=== PATIENT | female | born 1940 | race Caucasian/White ===

== ENCOUNTER 2016-10-14 21:15 | Inpatient (IN) | payer OTHER ==
--- NOTE | ~2016-10-14 | OP ---
Record Of Operation [facility] [address] [place]. [address] NAME: JOBY TREVINO : 39 STATUS : ADM IN PAT#: [id number] AGE: 76 ADM/REG DATE : 10/14/16 MR#: [id number] REPORT SERV DATE: 10/15/16 DICTATED BY: COLE LAURENT DATE: 10/15/16 REPORT STATUS : Draft TRANSCRIBED BY: MODL DATE: 10/15/16 DATE OF PROCEDURE: 10/15/2016 PREOPERATIVE DIAGNOSIS: Bilateral hydronephrosis. POSTOPERATIVE DIAGNOSIS: Bilateral hydronephrosis, right mid ureteral calculus, bilateral pyelonephritis. PROCEDURES: Cystoscopy, bilateral retrograde pyelogram, and bilateral ureteral stent placement. SURGEON: Cole Laurent M.D. ANESTHESIA: General laryngeal mask airway. BLOOD LOSS: None. DRAINS: 6-Libyan 24 cm left ureteral stent. 6-Libyan 24 cm right ureteral stent. All strings removed and a 16-Libyan Laurent catheter per urethra. SPECIMENS: Urine from right renal pelvis for culture and sensitivity. TECHNIQUE: The patient was identified, brought to the operating room, administered general anesthetic agent by the Anesthesia Service and maintained with laryngeal mask airway. She was positioned in dorsal lithotomy position. Vulva, groin, and introitus were prepped and draped in the usual sterile fashion. A 22-Libyan cystoscopic sheath placed in bladder with an obturator. The obturator was removed and bladder surveyed with both 30 and 70 degree lens after draining the cloudy urine. The ureteral orifices appeared normal in position and configuration. There were no urothelial tumors. There was a large central defect cystocele. Bladder had adequate capacity and was not trabeculated. Using a cone-tipped catheter, bilateral retrograde pyelograms were obtained. It showed tortuosity to both ureters but what appears to be an obstructing stone in the mid ureter at about the level of L4 on the right with proximal hydroureteronephrosis, and on the left some kinking of the proximal ureter, but no stone or filling defect to confirm obstruction in the proximal ureter. I placed a 0.35 wire up each ureter, over each ureter deployed a 6-Libyan 24 cm double-J ureteral stents. The strings and wire were removed. Their positions were confirmed fluoroscopically and cystoscopically. The bladder was drained. A 16-Libyan Laurent catheter passed into the bladder and 10 mL sterile water inflated in the balloon. Please note that while I had the wire and the open-ended catheter up the right ureter, I sampled urine from the right renal pelvis and we will send it for culture and sensitivity. Record Of Operation [facility] [address] [place]. [address] NAME: JOBY TREVINO : 39 STATUS : ADM IN PAT#: [id number] AGE: 76 ADM/REG DATE : 10/14/16 MR#: [id number] REPORT SERV DATE: 10/15/16 DICTATED BY: COLE LAURENT DATE: 10/15/16 REPORT STATUS : Draft TRANSCRIBED BY: JOAN DATE: 10/15/16 PF/JOAN Cole Laurent M.D. / [id number] CC: Rojas Treviño M.D.
--- NOTE | ~2016-10-14 | CN ---
Consultation Report [facility] [id number] [place]. [address] NAME: JOBY TREVINO : 39 STATUS : ADM IN PAT#: [id number] AGE: 76 ADM/REG DATE : 10/14/16 MR#: [id number] REPORT SERV DATE: 10/15/16 DICTATED BY: COLE LAURENT DATE: 10/15/16 REPORT STATUS : Draft TRANSCRIBED BY: MODL DATE: 10/15/16 CONSULTATION DATE OF CONSULTATION: 10/15/2016 REASON FOR CONSULTATION: Hydronephrosis. REQUESTING PHYSICIAN: Hospitalist Service. IMPRESSION: 1. Bilateral hydronephrosis, no distention of the ureters , and no distention of the bladder. 2. Acute kidney injury, baseline creatinine 0.4, it is now 0.8. 3. Possible urinary tract infection. 4. Chronic obstructive pulmonary disease. 5. History of irritable bowel syndrome. 6. History of skin cancer. 7. History of small-bowel obstruction. RECOMMENDATIONS: Cystoscopy and bilateral retrograde pyelograms. We will determine what they do show and then that may help guide us further to evaluate her cause for hydronephrosis and possible ureteral stenting. DISCUSSION: Ms. Trevino is a 76-year-old white female, who was admitted to the hospital last night with constipation, dysuria, and abdominal pain. CT scan of the abdomen and pelvis revealed bilateral hydronephrosis, but no distention of the ureters, and no distention of the bladder. The patient has some left flank pain and left lower back pain. She has had some dysuria associated with this. She was febrile in the emergency department. PAST MEDICAL HISTORY: Significant for irritable bowel syndrome, asthma, COPD, tobacco abuse, skin cancers, and small-bowel obstruction. PAST SURGICAL HISTORY: Abdominal hysterectomy, appendectomy, and tonsillectomy. MEDICATIONS AT HOME: Ventolin, vitamins, and Valium. ALLERGIES: SULFA. SOCIAL HISTORY: She smokes a pack a day. Has a greater than [id number] history. She denies alcohol or drug abuse. FAMILY HISTORY: Strokes and seizures. Father with tuberculosis. Siblings with breast cancer. Consultation Report [facility] [id number] [place]. [address] NAME: JOBY TREVINO : 39 STATUS : ADM IN PAT#: [id number] AGE: 76 ADM/REG DATE : 10/14/16 MR#: [id number] REPORT SERV DATE: 10/15/16 DICTATED BY: COLE LAURENT DATE: 10/15/16 REPORT STATUS : Draft TRANSCRIBED BY: JOAN DATE: 10/15/16 REVIEW OF SYSTEMS: The patient denies any pelvic prolapse, trouble with urination, or incontinence. PHYSICAL EXAMINATION: GENERAL: Showed a well-developed, very thin white female, in no acute distress. VITAL SIGNS: In the last set of vital signs, she was afebrile and stable. HEENT: She has good cognitive function. Her sclerae anicteric. NECK: Supple. LUNGS: Distant breath sounds. HEART: Tones are distant. ABDOMEN: Soft, nondistended, and nontender. Bladder is nontender. Flanks really not tender. PELVIC: Not done. LOWER EXTREMITIES: No deformities. STUDIES: I reviewed include the CT scan. I concur with the radiologist's interpretation. Additionally, her serum creatinine was 0.8. White count was 12, hemoglobin 9.7, and hematocrit of 36%. I have obtained consent. The patient agrees to a cystoscopy and bilateral retrograde pyelogram. We will do that here in the short future. PF/JOAN Cole Laurent M.D. / [id number] CC: Rojas Treviño M.D.
--- NOTE | ~2016-10-14 | DS ---
Discharge Summary [facility] [address] [place]. [address] NAME: JOBY TREVINO : 39 STATUS : DIS IN PAT#: [id number] AGE: 76 ADM/REG DATE : 10/14/16 MR#: [id number] REPORT SERV DATE: 10/18/16 DICTATED BY: HENRIETTA JOHNSON DATE: 10/17/16 REPORT STATUS : Draft TRANSCRIBED BY: MODL DATE: 10/17/16 ADMISSION DATE: 10/14/2016 DISCHARGE DATE: 10/17/2016 PRINCIPAL DIAGNOSIS: Pyelonephritis with sepsis due to pansensitive Klebsiella. SECONDARY DIAGNOSES: Nephrolithiasis with hydronephrosis, chronic obstructive pulmonary disease, cachexia. HISTORY OF PRESENT ILLNESS: Please see Dr. Pires's dictation, 10/14/2016. HOSPITAL COURSE: The patient was admitted with UTI and sepsis, found to have pyelo, bilateral kidney stones, and bilateral hydronephrosis. The patient was seen by Urology the following day, where bilateral stents were placed with evacuation of the hydronephrosis and resolution of the sepsis. Culture positive for Klebsiella. Blood cultures are negative, will be converted to p.o. antibiotics. She will complete seven days of therapy with the cephalexin. Follow up with Dr. Linda Rowe next week and Dr. Cole Noriega in two to four weeks regarding removal of the stents and further cystoscopic evaluation. She was also started on Remeron for appetite stimulation. Encouraged to take dietary supplements with ongoing efforts to gain weight. ROBERTO/JOAN Henrietta Johnson M.D. / [id number] CC: Willis Todd M.D. Patrick Foley, M.D.
--- NOTE | ~2016-10-14 | HP ---
History And Physical [facility] [address] [place]. [address] NAME: JOBY TREVINO : 39 STATUS : ADM IN PAT#: [id number] AGE: 76 ADM/REG DATE : 10/14/16 MR#: [id number] REPORT SERV DATE: 10/15/16 DICTATED BY: MARLEEN GRACE DATE: 10/14/16 REPORT STATUS : Draft TRANSCRIBED BY: MODL DATE: 10/14/16 DATE OF ADMISSION: 10/14/2016 POINT OF ENTRY: [facility] Emergency Department. CHIEF COMPLAINT: Constipation, dysuria, and abdominal pain. HISTORY OF PRESENT ILLNESS: Ms Trevino is a 76-year-old female with a history of irritable bowel syndrome, asthma, COPD, as well as active tobacco abuse, who presents to the emergency department today with a few day history of constipation with associated nausea and abdominal pain. The patient states that she fell about two weeks ago out of her chair and struck her pelvic region. Since then, she has been very sore in that area. She normally has very loose stools secondary to her IBS; however, three to four days ago she developed constipation making her very concerned for some kind of bowel obstruction. She also endorses some nausea, but denies vomiting and also endorses diffuse abdominal pain primarily worse over the bilateral lower quadrants as well as left greater than right flank region. She denies any fevers, night sweats, or chills. The patient does report a recent weight loss about 5 to 10 pounds over the last two to three years. Of note, she currently weighs about 85 pounds. She also denies any chest pain, palpitations, shortness of breath, cough, sputum production, vomiting, melena, hematochezia, hemoptysis, or hematemesis. Does also report some dysuria, decreased urinary output, as well as some odor over the past few days as well. Comprehensive review of systems otherwise negative unless listed in history of present illness. Initial evaluation in the emergency room notable for a white count of 12,000. Initial temperature in triage was 101.7, but on recheck in the exam room was 99 degrees. Urinalysis is pending at the time of dictation. CT of the abdomen and pelvis unfortunately is notable for severe bilateral hydronephrosis of unclear etiology as well as some associated perinephric stranding and some retroperitoneal lymphadenopathy. The patient was subsequently admitted to the Hospitalist Service for further evaluation and management. PREVIOUS MEDICAL HISTORY: 1. Irritable bowel syndrome. 2. Asthma. 3. COPD. 4. Active tobacco abuse. 5. History of skin cancer on the face. 6. History of small-bowel obstruction status post exploratory laparotomy. SURGICAL HISTORY: 1. Abdominal hysterectomy. 2. Appendectomy. 3. Tonsillectomy. History And Physical [address] [address] NAME: JOBY TREVINO : 39 STATUS : ADM IN [facility]#: [id number] AGE: 76 ADM/REG DATE : 10/14/16 MR#: [id number] REPORT SERV DATE: 10/15/16 DICTATED BY: MARLEEN GRACE DATE: 10/14/16 REPORT STATUS : Draft TRANSCRIBED BY: JOAN DATE: 10/14/16 4. Ex-Lap for SBO. ALLERGIES: TO SULFA DRUGS. HOME MEDICATIONS: 1. Ventolin one puff inhalation q.4 hours p.r.n. 2. Vitamin B12 1000 mcg daily. 3. Valium 1 mg daily p.r.n. pain. SOCIAL HISTORY: She smokes about a pack per day and has a greater than 08-[id number]-[id number] smoking history. She is a very frequent drinker, typically drinks about three drinks per day, but has not had any alcohol to drink for the past two weeks after her fall. Denies any illicits. FAMILY MEDICAL HISTORY: Mother with history of stroke and TIA. Father with TB. Siblings with breast cancer and diabetes. LABS AND IMAGIN. White count is 12.0, hemoglobin is 14.2, hematocrit is 42.7, and platelets 301. INR 1.1. 2. Sodium is 140, potassium 3.3, chloride 100, carbon dioxide 31, BUN 16, creatinine 0.88, glucose is 101, calcium is 9.2, protein 7.6, albumin is 3.2, bilirubin is 1.2, ALT is 22, AST is 19, and alkaline phosphatase is 81. 3. Lactic acid is 0.7. 4. Lipase is 57. 5. Chest x-ray per my review shows COPD type changes with a flattened diaphragm and hyperinflation as well as some biapical fibrosis changes. 6. CT scan of the abdomen and pelvis shows severe bilateral hydronephrosis with some perinephric stranding as well as retroperitoneal lymphadenopathy. The ureteral dilatation appears to end at the ureteropelvic junction bilaterally, nothing to suggest any focal retroperitoneal fibrosis. PHYSICAL EXAMINATION: VITAL SIGNS: Temperature is 101.7, blood pressure is 123/58, pulse is 102, respirations 18, and saturating 98% on room air. On recheck, temperature is 99 degrees Fahrenheit. GENERAL: The patient is awake and alert, in no acute distress. Resting comfortably. She is a very thin and frail cachectic appearing, elderly, chronically ill-appearing female in no acute distress. Resting comfortably in bed. HEENT: Atraumatic and normocephalic. Slightly dry mucous membranes. Pupils are equal, round, reactive to light and accommodation. Extraocular eye movements intact. No scleral icterus. NECK: No jugular venous distention. No carotid bruits. CARDIAC: Tachycardic rate, regular rhythm. No murmurs, rubs, or gallops. Normal S1, S2. LUNGS: Clear to auscultation bilaterally. Does have some decreased breath sounds at bases and prolonged expiratory phase. No wheezes, rhonchi, or crackles. ABDOMEN: Soft, mildly tender to palpation over bilateral lower quadrants as well as a left greater than right flank and CVA area. History And Physical [address] [address] NAME: JOBY TREVINO : 39 STATUS : ADM IN [facility]#: [id number] AGE: 76 ADM/REG DATE : 10/14/16 MR#: [id number] REPORT SERV DATE: 10/15/16 DICTATED BY: MARLEEN GRACE DATE: 10/14/16 REPORT STATUS : Draft TRANSCRIBED BY: MODL DATE: 10/14/16 EXTREMITIES: Thin, cachectic and wasted, but warm and well perfused. No cyanosis, clubbing, or edema. SKIN: Warm and dry. PSYCH: Affect appropriate. NEURO: Alert and oriented x3. Cranial nerves 2 through 12 grossly intact. Speech is normal. Gait not assessed. ASSESSMENT AND PLAN: Ms Trevino is a 76-year-old female, who presents with abdominal pain, constipation, nausea, and dysuria, and found to have evidence of pyelonephritis, sepsis, as well as bilateral hydronephrosis. PROBLEM LIST: 1. Bilateral hydronephrosis. 2. Pyelonephritis. 3. Sepsis. 4. Weight loss. 5. Active tobacco abuse. PLAN: 1. Bilateral hydronephrosis, unclear etiology at this time. We will consult Urology for likely cystoscopy evaluation. We will also order a renal ultrasound for additional imaging. We are checking for evidence of urinary retention here in the emergency department and if so we will place a Noriega catheter. 2. Pyelonephritis. The patient has evidence of pyelonephritis with perinephric stranding as well as leukocytosis and fevers. Urinalysis is pending at the time of dictation, to confirm this we will empirically place the patient on IV antibiotics as well as provide IV fluid hydration. 3. Sepsis. She meets criteria with tachycardia, fevers, as well as leukocytosis greater than 12. Lactic acid within normal limits. We will follow up blood and urine cultures. Place the patient on cefepime as well as IV fluid hydration. 4. Weight loss. The patient's weight loss as well as very low BMI very concerning for some kind of underlying malignancy. The patient does drink alcohol on a fairly regular basis as well as smokes. We will follow up results of Urology consultation likely cystoscopy for possible malignancy, and we will also consult Nutrition for assistance. 5. DVT prophylaxis. Lovenox subcutaneous. CODE STATUS: The patient wished to be full code. DOMENIC/JOAN Marleen Grace MD / [id number] History And Physical [address] [address] NAME: JOBY TREVINO : 39 STATUS : ADM IN [facility]#: [id number] AGE: 76 ADM/REG DATE : 10/14/16 MR#: [id number] REPORT SERV DATE: 10/15/16 DICTATED BY: MARLEEN GRACE DATE: 10/14/16 REPORT STATUS : Draft TRANSCRIBED BY: DANELLEL DATE: 10/14/16 CC: MD Linda Durand M.D.
[2016-10-14 15:52] LABS: BASOPHILS 0.2 %; BASOPHILS ABSOLUTE 0.02 10/3/uL (0.0-0.16); EOSINOPHILS 0 %; HEMATOCRIT 42.7 % (36.0-48.0); HEMOGLOBIN 14.2 g/dL (12.0-16.0); IMMATURE GRANULOCYTES 0.2 %; IMMATURE GRANULOCYTES ABSOLUTE 0.02 10/3/uL (0.0-0.11); LYMPHOCYTES 6.1 %; LYMPHOCYTES ABSOLUTE 0.73 10/3/uL (0.67-4.30); MANUAL DIFF NO %; MEAN CORPUS HGB CONC 33.3 g/dL (32.0-36.0); MEAN CORPUSCULAR HEMOGLOB 32.6 pg (26.0-34.0); MEAN CORPUSCULAR VOLUME 98.2 fL (80-100); MEAN PLATELET VOLUME 9.5 fL (9.2-13.0); MONOCYTES 5.8 %; NEUTROPHILS 87.7 %; NEUTROPHILS ABSOLUTE 10.51 10/3/uL (2.02-8.40); PLATELET COUNT 301 10/3/uL (150-400); RBC DISTRIBUTION WIDTH 13.5 % (12.0-16.0); RED CELL COUNT 4.35 10/6/uL (4.0-5.6)
[2016-10-14 15:59] LABS: INTERNATIONAL NORMAL RATI 1.1 UNITS (-); PROTIME (NOT ORD) 13.8 SEC (12.0-14.5)
[2016-10-14 16:07] LABS: ALBUMIN 3.3 G/DL (3.5-5.0); CALCIUM, SERUM 9.2 MG/DL (8.5-10.4); CREATININE 0.88 MG/DL (0.55-1.02); GFR AFRICAN AMERICAN 73 ML/MIN (>=60); GFR NON AFRICAN AMERICAN 63 ML/MIN (>=60); GLUCOSE, SERUM 101 MG/DL (60-99); POTASSIUM, SERUM 3.3 MMOL/L (3.5-5.3); SGOT(AST) 19 U/L (5-40); SGPT(ALT) 22 U/L (5-65); SODIUM, SERUM 140 MMOL/L (135-148)
[2016-10-14 16:09] LABS: A/G RATIO 0.8 (0.7-1.9); ALKALINE PHOSPHATASE 81 U/L (45-117); BUN (BLOOD UREA NITROGEN) 16 MG/DL (6-23); CHLORIDE, SERUM 100 MMOL/L (96-112); CO2 (CARBON DIOXIDE) 31 MMOL/L (24-34); GLOBULIN 4.3 G/DL (2.5-4.1); TOTAL BILIRUBIN 1.2 MG/DL (0-1.2); TOTAL PROTEIN 7.6 G/DL (6.0-8.5)
[~2016-10-14 21:15] MED LIST: ALBUTEROL INH INH; B-12; BIOTIN10 MG PO; CIP5 PO; CYANO1000T PO; ESTRACE1 MG PO; HALF81 PO; IMOD PO; PREMARIN PO; VENTOLIN HFA INH; VITE PO
[2016-10-14] MEDS ORDERED: VENTOLIN HFA INH (22:47)
[2016-10-14] MEDS ORDERED: CYANO1000T PO (22:47)
[2016-10-14] MEDS ORDERED: V2 PO (22:47)
[2016-10-15 00:02] LABS: ASCORBIC ACID (UR NOT ORDER) NEG (NEG); BILIRUBIN, URINE NEGATIVE (NEG); ER URINALYSIS TAT 0 Hrs 00 Mins; KETONE, URINE 20 MG/DL (NEG); LEUKOCYTE ESTERASE(NOT OR LARGE (NEG); NITRITE (URINE) POS (NEG); WBC (NOT ORDERED) (RFLEX) 74 (0-5)
[2016-10-15 06:26] LABS: BASOPHILS 0.1 %; BASOPHILS ABSOLUTE 0.01 10/3/uL (0.0-0.16); EOSINOPHILS 0.5 %; EOSINOPHILS ABSOLUTE 0.04 10/3/uL (0.0-0.53); IMMATURE GRANULOCYTES 0.1 %; IMMATURE GRANULOCYTES ABSOLUTE 0.01 10/3/uL (0.0-0.11); LYMPHOCYTES 10.7 %; LYMPHOCYTES ABSOLUTE 0.85 10/3/uL (0.67-4.30); MEAN CORPUS HGB CONC 33.5 g/dL (32.0-36.0); MEAN CORPUSCULAR HEMOGLOB 33.4 pg (26.0-34.0); MEAN CORPUSCULAR VOLUME 99.7 fL (80-100); MEAN PLATELET VOLUME 9.6 fL (9.2-13.0); MONOCYTES 9.5 %; MONOCYTES ABSOLUTE 0.76 10/3/uL (0.21-1.20); NEUTROPHILS 79.1 %; PLATELET COUNT 257 10/3/uL (150-400); RBC DISTRIBUTION WIDTH 13.5 % (12.0-16.0); RED CELL COUNT 3.59 10/6/uL (4.0-5.6)
[2016-10-15 06:27] LABS: HEMATOCRIT 35.8 % (36.0-48.0); MANUAL DIFF NO %
[2016-10-15 06:49] LABS: CHLORIDE, SERUM 107 MMOL/L (96-112); CREATININE 0.85 MG/DL (0.55-1.02); FREE T4 1.18 NG/DL (0.76-1.46); GFR AFRICAN AMERICAN 77 ML/MIN (>=60); GFR NON AFRICAN AMERICAN 66 ML/MIN (>=60); POTASSIUM, SERUM 3.2 MMOL/L (3.5-5.3); PREALBUMIN 8.1 MG/DL (17.0-43.0); SODIUM, SERUM 143 MMOL/L (135-148)
[2016-10-15 06:50] LABS: BUN (BLOOD UREA NITROGEN) 21 MG/DL (6-23); CALCIUM, SERUM 8.2 MG/DL (8.5-10.4); CO2 (CARBON DIOXIDE) 24 MMOL/L (24-34); GLUCOSE, SERUM 61 MG/DL (60-99); ULTRASENSITIVE TSH 0.658 MCIU/ML (0.358-3.740)
[2016-10-16 05:00] LABS: BASOPHILS 0.1 %; BASOPHILS ABSOLUTE 0.01 10/3/uL (0.0-0.16); EOSINOPHILS 0.9 %; EOSINOPHILS ABSOLUTE 0.08 10/3/uL (0.0-0.53); HEMOGLOBIN 11.9 g/dL (12.0-16.0); IMMATURE GRANULOCYTES 0.2 %; IMMATURE GRANULOCYTES ABSOLUTE 0.02 10/3/uL (0.0-0.11); LYMPHOCYTES 6.2 %; LYMPHOCYTES ABSOLUTE 0.56 10/3/uL (0.67-4.30); MEAN CORPUS HGB CONC 33.1 g/dL (32.0-36.0); MEAN CORPUSCULAR HEMOGLOB 33.1 pg (26.0-34.0); MEAN CORPUSCULAR VOLUME 100.3 fL (80-100); MEAN PLATELET VOLUME 9.3 fL (9.2-13.0); MONOCYTES 4.6 %; MONOCYTES ABSOLUTE 0.42 10/3/uL (0.21-1.20); NEUTROPHILS ABSOLUTE 7.97 10/3/uL (2.02-8.40); PLATELET COUNT 229 10/3/uL (150-400); RBC DISTRIBUTION WIDTH 13.6 % (12.0-16.0); RED CELL COUNT 3.59 10/6/uL (4.0-5.6); WHITE BLOOD CELLS 9.1 10/3/uL (4.5-10.5)
[2016-10-16 05:02] LABS: MANUAL DIFF NO %
[2016-10-16 05:22] LABS: BUN (BLOOD UREA NITROGEN) 19 MG/DL (6-23); CALCIUM, SERUM 7.8 MG/DL (8.5-10.4); CHLORIDE, SERUM 106 MMOL/L (96-112); CO2 (CARBON DIOXIDE) 25 MMOL/L (24-34); CREATININE 1.02 MG/DL (0.55-1.02); GFR AFRICAN AMERICAN 61 ML/MIN (>=60); GFR NON AFRICAN AMERICAN 53 ML/MIN (>=60); POTASSIUM, SERUM 3.6 MMOL/L (3.5-5.3); SODIUM, SERUM 140 MMOL/L (135-148)
[2016-10-16 05:23] LABS: GLUCOSE, SERUM 143 MG/DL (60-99)
[2016-10-17] MEDS ORDERED: REM15 PO (10:52)
[2016-10-17] MEDS ORDERED: K250 PO (10:52)
== END 2016-10-17 12:06 | disposition home or self-care (01) | DRG 871 ==
LOC: ER 21:15 → 4SO 23:52 → SDC/OF 10-15 14:33 → 2SO 10-15 16:57
PROVIDERS: Emergency Medicine; Internal Medicine; Urology
PROC: 0T788DZ Dilation of Bilateral Ureters with Intraluminal Device, Via Natural or Artificial Opening Endoscopic (ICD-10-PCS; 2016-10-15)
PROC: BT141ZZ Fluoroscopy of Kidneys, Ureters and Bladder using Low Osmolar Contrast (ICD-10-PCS; principal; 2016-10-15 11:15)
DX: A41.9 Sepsis, unspecified organism (principal); E43 Unspecified severe protein-calorie malnutrition; N17.9 Acute kidney failure, unspecified; N13.6 Pyonephrosis; N12 Tubulo-interstitial nephritis, not specified as acute or chronic; N10 Acute pyelonephritis; I48.92 Unspecified atrial flutter; I47.1 Supraventricular tachycardia; I97.89 Other postprocedural complications and disorders of the circulatory system, not elsewhere classified; Z68.1 Body mass index [BMI] 19.9 or less, adult; J44.9 Chronic obstructive pulmonary disease, unspecified; F17.210 Nicotine dependence, cigarettes, uncomplicated; R63.4 Abnormal weight loss; K58.9 Irritable bowel syndrome, unspecified; F10.10 Alcohol abuse, uncomplicated; K59.00 Constipation, unspecified; Z87.2 Personal history of diseases of the skin and subcutaneous tissue; Z98.890 Other specified postprocedural states; Z82.3 Family history of stroke; Z80.3 Family history of malignant neoplasm of breast
CPT/HCPCS: 71020; 74176; 74420; 76775; 80048; 80053; 81001; 82570; 83605; 83690; 83935; 84134; 84300; 84439; 84443; 84484; 85025; 85610; 85730; 87040; 87077; 87086; 87186; 93005; 99285; A9270-GY; C1758; C2617; C8929; J0692; J2175; J2250; J3010; P9045; Q9957; Q9967

== ENCOUNTER 2016-10-29 19:00 | Inpatient (IN) | payer OTHER ==
--- NOTE | ~2016-10-29 | CN ---
Consultation Report [facility] [address] [place]. [address] NAME: ANAMARIA TREVINO : 39 STATUS : ADM IN [facility]#: [id number] AGE: 76 ADM/REG DATE : 10/30/16 MR#: [id number] REPORT SERV DATE: 10/30/16 DICTATED BY: MALACHI GATES DATE: 10/30/16 REPORT STATUS : Draft TRANSCRIBED BY: MODL DATE: 10/30/16 DATE OF CONSULTATION: REASON FOR CONSULTATION: Retroperitoneal lymphadenopathy. HISTORY OF PRESENT ILLNESS: Ms. Anamaria Trevino is a 76-year-old woman with COPD, asthma, long standing tobacco abuse, admitted in late September with bilateral hydronephrosis. She also complained of a 10 to 15 pounds weight loss over that time. She underwent bilateral ureteral stent placement at that time and tolerated it fairly well. She was found to have bilateral kidney stones and that was thought to be perhaps the cause of this hydronephrosis. She was treated for urinary tract infection after culture showed Klebsiella. She had worsening abdominal discomfort, was readmitted on 10/30/2016. CT scan at that time now showed bilateral retroperitoneal lymph nodes likely causing the hydronephrosis. These were thought to be obstructing the stents at this time. She has undergone bilateral percutaneous nephrostomy tubes placement earlier today. She is fairly fatigued from this, but is feeling more comfortable than when she was first admitted. Her creatinine was elevated at 3.7 earlier today. Her blood counts are relatively normal. She reports that she has had a 10 to 15 pounds weight loss over the last several years. She denies any adenopathy, but she has been quite fatigued. PAST MEDICAL HISTORY: COPD, asthma, pyelonephritis, history hydronephrosis with stent placement in 09/2015, nephrolithiasis, irritable bowel syndrome. PAST SURGICAL HISTORY: Skin cancer removal, appendectomy, hysterectomy, exploratory laparoscopy for small-bowel obstruction. ALLERGIES: SULFA. SOCIAL HISTORY: She has a long smoking history and reports now that she has quit. She does drink up to three drinks per day. She has been for more than 50 years and lives in [place], [place]. FAMILY HISTORY: No family history of lymphomas. CURRENT MEDICATIONS: At home albuterol, Remeron. Hospitalized medications just Remeron, IV fluids, subcutaneous heparin. PHYSICAL EXAMINATION: VITAL SIGNS: Temperature 92.8, BP 144/67, heart rate of 99. GENERAL: She is a thin, frail, elderly woman and in no distress at this time. HEENT: Pupils equal, round, reactive. No oral lesions. No cervical adenopathy. LUNGS: Clear to auscultation. She is saturating 87% on room air. She has no increased effort. Adenopathy is found in the left and right axilla, measuring just a centimeter. She is quite cachectic. CARDIAC: Regular rate and rhythm. Normal S1, S2. Consultation Report [place] [id number] [facility] [place]. [address] NAME: ANAMARIA TREVINO : 38 STATUS : ADM IN [facility]#: [id number] AGE: 76 ADM/REG DATE : 10/30/16 MR#: [id number] REPORT SERV DATE: 10/30/16 DICTATED BY: MALACHI GATES DATE: 10/30/16 REPORT STATUS : Draft TRANSCRIBED BY: MODL DATE: 10/30/16 ABDOMEN: Soft. She is fairly tender from the nephrostomy tube placement. Spleen is not palpable. Inguinal adenopathy is not palpable. EXTREMITIES: No clubbing, no cyanosis, no edema. CT scans peripherally refer spleen reviewed. She has a non-contrasted CT from yesterday showing the significant bulky bilateral retroperitoneal lymph nodes causing some external compression on the stent. ASSESSMENT AND PLAN: Ms. Anamaria Trevino is a 76-year-old woman with significant COPD admitted with acute kidney injury and bilateral hydronephrosis. I think is related to her bulky retroperitoneal lymphadenopathy. There is no other easily accessible nodes to biopsy, I think the best sources to go after these retroperitoneal lymph nodes. Her performance status is quite weak. I think we need to perform a core needle biopsy as I think it would be difficult for her to undergo exploratory lap and given the location, I think the CT- guided biopsy is our only real choice. She will have this done tomorrow. I have also ordered a CT of the chest noncontrast to evaluate for other adenopathy. She does have two small axillary nodes, but these are so small I think there may be a separate process and are not real concerning for lymphoma. Acute kidney injury, now that she has had nephrostomy tubes placed, hopefully, this will improve. DBD/MODL Malachi Gates M.D. / [id number] CC: Willis Garrett M.D. Patrick Foley, M.D.
--- NOTE | ~2016-10-29 | DS ---
Discharge Summary [facility] [address] [place]. [address] NAME: JOBY TREVINO : 39 STATUS : DIS IN PAT#: [id number] AGE: 76 ADM/REG DATE : 10/30/16 MR#: [id number] REPORT SERV DATE: 11/04/16 DICTATED BY: HODA SON DATE: 11/04/16 REPORT STATUS : Draft TRANSCRIBED BY: MODL DATE: 11/04/16 ADMISSION DATE: 10/30/2016 DISCHARGE DATE: 11/04/2016 DIAGNOSES: 1. Severe bilateral hydronephrosis, status post bilateral nephrostomy tubes. 2. Abdominal pain secondary to severe bilateral hydronephrosis. 3. Metastatic cancer with lymphadenopathy. 4. Arrhythmia with atrial fibrillation/flutter, resolved. 5. Acute kidney injury, resolved. 6. Hypomagnesemia, replaced. 7. Hypokalemia, replaced. 8. Debility. 9. Leukocytoses. 10.Severe malnutrition. CONSULTANTS: Hematology Oncology, Dr. Mcgregor and Dr. Malachi Gates; Urology, Dr. Cole Noriega; and Cardiology, Dr. Evaristo Valencia. PROCEDURES: 1. Nephrostomy tube placement bilateral on 10/30/2016, ordered by Dr. Cole Noriega and placed by Dr. Velazquez. 2. CT-guided lymph node biopsy on 10/31/2016 per Interventional Radiology, ordered by Dr. Malachi Gates. IMAGIN. CT of the abdomen and pelvis with persistent severe right hydronephrosis and moderate- severity left hydronephrosis despite new bilateral ureteral stents, retroperitoneal adenopathy. 2. Chest CT without contrast showing a spiculated masslike infiltrate in the right lung base with a peripheral mildly thickened wall cystic component superimposed on preexisting chronic apical pleural parenchymal fibrosis. This is suspicious for neoplastic lesion until proven otherwise. There is otherwise stable biapical pleural fibrosis pattern and stable focal pleural base fibrosis in the posterior right upper lobe and mild subcarinal adenopathy. HOSPITAL COURSE: Please see H and P dictated by Dr. Allan Hunter. A 76-year-old female with recent placement of ureter stent for bilateral hydronephrosis, re-presented to [facility] ER with persistent flank pain with abdominal pain. She has a past medical history of COPD and nephrolithiasis. The patient was admitted to the Hospitalist Service with a Urology consultation, seen by her primary urologist, Dr. Cole Noriega. It was concerning considering that the patient's stents were still considered as open, but yet, the patient continued to have persistent bilateral hydronephrosis per CT of the abdomen and pelvis. Also, there were findings of periaortic retroperitoneal adenopathy. Therefore, Hematology Oncology was consulted for suspicious metastatic disease. The patient was initially seen by Dr. Malachi Gates and then later by Dr. Mcgregor. Dr. Cole Noriega did consult Interventional Discharge Summary [address] [address] NAME: JOBY TREVINO : 39 STATUS : DIS IN PAT#: [id number] AGE: 76 ADM/REG DATE : 10/30/16 MR#: [id number] REPORT SERV DATE: 11/04/16 DICTATED BY: HODA SON DATE: 11/04/16 REPORT STATUS : Draft TRANSCRIBED BY: JOAN DATE: 11/04/16 Radiology for bilateral nephrostomy tube placements with alleviation of her obstruction and resolving of her acute kidney injury. The patient was also found to have severe malnutrition, and dermatology nurse was consulted with a prealbumin of 5.4. 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 The patient, during her hospital stay, did develop some atrial fibrillation with RVR with some hypotension, and was transferred to [facility], placed on amiodarone drip by on-call physician, Dr. Allan Hunter. The patient's arrhythmia resolved. The patient was back to sinus rhythm. However, she did develop some infiltration of amiodarone at her right upper extremity and with treatment, had improvement. She continued to have a radial pulse and also pain completely resolved. Per Hematology Oncology, Dr. Mcgregor, it was recommended for the patient to consider hospice. He spoke with the patient and family on several occasions. The patient, with discussion with her family, decided on hospice due to the patient's diagnosis of metastatic carcinoma. The patient, after discussing with family, and both the patient and family decided hospice was the route for Ms. Trevino, and therefore, also granddaughter stated that they prefer hospice of [place]. Therefore, hospice was consulted. Also, Urology agreed with recommendations of hospice as well per Oncology. The patient was discharged to home with hospice per her wishes. WALI/JOAN Hoda Son M.D. / [id number] CC: Willis Garrett M.D. Patrick Foley, M.D.
--- NOTE | ~2016-10-29 | CN ---
Consultation Report [facility] [address] [place]. [address] NAME: JOBY TREVINO : 39 STATUS : ADM IN PAT#: [id number] AGE: 76 ADM/REG DATE : 10/30/16 MR#: [id number] REPORT SERV DATE: 11/02/16 DICTATED BY: EVARISTO RANDLE DATE: 11/02/16 REPORT STATUS : Draft TRANSCRIBED BY: MODL DATE: 11/02/16 CARDIOLOGY CONSULT DATE OF CONSULTATION: 11/02/2016 REQUESTING PHYSICIAN: Dottie Culver M.D. REASON FOR CONSULTATION: Atrial fibrillation/flutter. HISTORY OF PRESENT ILLNESS: Ms. Trevino is a 76-year-old female, with metastatic carcinoma and failure to thrive/cachexia, due to dysphagia, who is admitted with ureteral obstruction, secondary to adenopathy. This has been treated by Urology with bilateral stents. Last evening, she had an abrupt onset of in atypical atrial flutter versus atrial tachycardia, and variable AV conduction with RVR at a rate of 160-180 beats per minute. This was treated with Cardizem, due to hypotension, and was transitioned to amiodarone. Her magnesium was 1.1, which was repleted, and her arrhythmia terminated, and she is now on sinus rhythm. Ms. Trevino noticed some tachy palpitations, but otherwise is asymptomatic with her arrhythmia. She had no chest pain or shortness of breath. She had no lightheadedness, dizziness, or near syncope. She has had no orthopnea or edema. Of note, the family does state that she has had a history of atrial arrhythmia in the past requiring cardioversion, this was many years ago. REVIEW OF SYSTEMS: Pertinent positives and negatives as outlined above, all others are negative. PAST MEDICAL HISTORY: 1. Metastatic carcinoma. 2. History of atrial arrhythmia. 3. COPD. CURRENT HOME MEDICATIONS: As listed are albuterol p.r.n., Remeron 15 mg at bedtime, and vitamin B12 supplementation. ALLERGIES: SULFA. SOCIAL HISTORY: She has a remote history of tobacco use. She does not consume alcohol or any illegal drugs. FAMILY HISTORY: No significant family history of premature CAD, cardiomyopathy, or sudden . PHYSICAL EXAMINATION: VITAL SIGNS: Temperature is afebrile, pulse is 80, respirations 16, and blood pressure Consultation Report [facility] [address] [place]. [address] NAME: JOBY TREVINO : 39 STATUS : ADM IN PAT#: [id number] AGE: 76 ADM/REG DATE : 10/30/16 MR#: [id number] REPORT SERV DATE: 11/02/16 DICTATED BY: EVARISTO RANDLE DATE: 11/02/16 REPORT STATUS : Draft TRANSCRIBED BY: MODL DATE: 11/02/16 120/70. GENERAL: Well-developed, but thin and frail appearing, cachectic female, who is in no acute distress. HEENT: Sclerae anicteric, mucous membranes moist and without lesions. Temporal wasting noted. NECK: No jugular venous distention. No hepatojugular reflux, carotid upstrokes 2+ and symmetric, there are no carotid or subclavian bruit. LUNGS: Moderately decreased breath sounds throughout. No wheezes or crackles. CARDIOVASCULAR: Regular with S1 and S2. No audible S3. No audible murmurs. No parasternal lift. PMI is not palpable. ABDOMEN: Soft and nontender. Bowel sounds are positive and normoactive. PULSES: Radial and dorsalis pedal pulse are 1+ symmetric. EXTREMITIES: Warm and without edema. SKIN: No clubbing or cyanosis, no rashes or lesions. ACCESSORY DATA: Echocardiogram from 10/16/2016, with an LVEF of 55%. Normal RV size and function. No significant valve disease. IMPRESSION: 1. Atrial tachycardia versus atypical atrial flutter with rapid ventricular response. 2. Hypomagnesemia. 3. Metastatic carcinoma. 4. Failure to thrive/cachexia. PLAN: No new recommendations for now. The patient's arrhythmia was terminated and may have been exacerbated by hypomagnesemia. If her arrhythmia reoccur, would recommend low-dose amiodarone 100 mg daily for prophylaxis. Given her frail state, she is unlikely to tolerate any AV kika blocking agents such as metoprolol and Cardizem. We have discussed her care with Hematology and Oncology, with no treatment options available for her at this point. I agree with DNR and hospice. We are available as needed. AEA/DANELLEL Evaristo Randle M.D. / [id number] CC: Willis Garrett M.D.
--- NOTE | ~2016-10-29 | HP ---
History And Physical [address] [address] NAME: JOBY TREVINO : 38 STATUS : ADM IN [facility]#: [id number] AGE: 76 ADM/REG DATE : 10/30/16 MR#: [id number] REPORT SERV DATE: 10/30/16 DICTATED BY: BERNARD MCMAHON DATE: 10/30/16 REPORT STATUS : Draft TRANSCRIBED BY: MODL DATE: 10/30/16 DATE OF ADMISSION: 10/30/2016 CHIEF COMPLAINT: A 76-year-old female with recent ureteral stents placed for hydronephrosis, now presenting with persistent flank and abdominal pain. HISTORY OF PRESENT ILLNESS: The patient's history was obtained and careful interview with the patient and coupled with review of [facility] and [facility] medical records. The patient has a history of pyelonephritis with hydronephrosis. She has stents placed under the care Dr. Noriega. For the last 10 days, she has just had progressive abdominal discomfort and illness. She describes suprapubic abdominal discomfort, but also right flank tenderness aching quality, 10 to 12/10 severity. She has been trying to have her rub Icy Hot into her flank to help with the pain. She developed nausea, but no vomiting. No fevers or chills. She has had a very poor appetite with about a five-pound weight loss in the last month. No shortness of breath, no cough, no chest pain, no fevers, chills, no dysuria and no noticed hematuria. REVIEW OF SYSTEMS: Otherwise, a 14-point review of systems was obtained and was negative. PAST MEDICAL HISTORY: 1. COPD/asthma. 2. Pyelonephritis with hydronephrosis and stent placement under the care of Dr. Noriega. 3. Colon polyps seen by Dr. Elvis Perry. 4. Nephrolithiasis. 5. Irritable bowel syndrome. PAST SURGICAL HISTORY: 1. Skin cancer removal. 2. Appendectomy. 3. Hysterectomy. 4. Exploratory laparoscopy for small bowel obstruction. ALLERGIES: SULFA. SOCIAL HISTORY: Quit smoking. She will drink up to three drinks of alcohol a day. She has been to her for 57 years. Has three children. Lives in [place], [place]. History And Physical [address] [address] NAME: JOBY TREVINO : 39 STATUS : ADM IN PAT#: [id number] AGE: 76 ADM/REG DATE : 10/30/16 MR#: [id number] REPORT SERV DATE: 10/30/16 DICTATED BY: BERNARD MCMAHON DATE: 10/30/16 REPORT STATUS : Draft TRANSCRIBED BY: JOAN DATE: 10/30/16 FAMILY HISTORY: Includes breast cancer, diabetes, stroke and father with tuberculosis. CURRENT MEDICATIONS: Include albuterol inhaler, vitamin and Remeron 15 mg p.o. at bedtime. PHYSICAL EXAMINATION: VITAL SIGNS: Temperature 99.5, pulse 105, blood pressure 132/63, respiratory rate 14, O2 saturation 97% on room air. GENERAL: An ill-appearing female, in evidence of described distress secondary to flank pain and abdominal pain. HEENT: Pupils equal, round, and reactive to light. No conjunctival pallor. No scleral icterus. Nares are patent. Oropharynx is clear of obstruction. Dry mucous membranes with cracking of the tongue and lips. NECK: Trachea midline. No thyromegaly. LYMPHS: No cervical lymphadenopathy. No supraclavicular lymphadenopathy. No inguinal lymphadenopathy. RESPIRATORY: Clear to auscultation at bases. No wheezes, rales, or rhonchi. Normal respiratory effort. CARDIOVASCULAR: Tachycardic, regular rhythm. No murmurs, rubs, or gallops. No extremity edema is appreciated. ABDOMEN: Significant right flank tenderness and suprapubic abdominal discomfort. No guarding, no rebound, nondistended, no hepatosplenomegaly. DERMATOLOGICAL: Warm and dry extremities. No pallor or no cyanosis. PSYCHIATRIC: Normal affect. Good mood. Alert and oriented x3. LABORATORY DATA: White blood count 10.7, hemoglobin 14, hematocrit 42, platelets 376,000. Sodium 134, potassium 4.2, chloride 93, bicarb 31, BUN 24, creatinine 2.58 from a baseline creatinine of 0.8, glucose 106. Urinalysis shows 46 red blood cells and 8 white blood cells. STUDIES: 1. CT scan of the abdomen shows persistent and worsening right and left hydronephrosis stable appearing retroperitoneal lymphadenopathy. 2. Chest x-ray by my own evaluation shows right atelectasis changes, but no acute abnormality otherwise. ASSESSMENT AND PLAN: 1. Right hydronephrosis symptomatic, despite patient having stable ureteral stents question whether patient may need nephrostomy tube? We will consult Dr. Noriega, urologist. 2. Acute renal failure, but may be a combination of obstructive changes coupled with dehydration. We will place on IV fluids. Place a Noriega catheter and discuss with Dr. Noriega the need to relieve hydronephrosis. 3. Stable retroperitoneal lymphadenopathy. Uncertain if this might be related to patient's presentation? May need to consider biopsy versus outpatient followup? [facility]/MOD History And Physical [address] [address] NAME: JOBY TREVINO : 38 STATUS : ADM IN [facility]#: [id number] AGE: 76 ADM/REG DATE : 10/30/16 MR#: [id number] REPORT SERV DATE: 10/30/16 DICTATED BY: BERNARD MCMAHON DATE: 10/30/16 REPORT STATUS : Draft TRANSCRIBED BY: MODCheli DATE: 10/30/16 Bernard Mcmahon M.D. / [id number] CC: Willis Garrett M.D. Patrick Foley, M.D.
--- NOTE | ~2016-10-29 | CN ---
Consultation Report [facility] [address] [place]. [address] NAME: JOBY TREVINO : 38 STATUS : ADM IN PAT#: [id number] AGE: 76 ADM/REG DATE : 10/30/16 MR#: [id number] REPORT SERV DATE: 10/30/16 DICTATED BY: COLE LAURENT DATE: 10/30/16 REPORT STATUS : Draft TRANSCRIBED BY: MODL DATE: 10/30/16 RE-CONSULTATION. DATE OF CONSULTATION: 10/30/2016 REASON FOR CONSULTATION: Acute kidney injury. IMPRESSION: Acute kidney are injury from obstructive uropathy despite recent bilateral stent placement and highly suspicious for retroperitoneal malignancy. RECOMMENDATIONS: 1. Bilateral percutaneous nephrostomy tube placement this morning. 2. Initiate broad-spectrum antibiotics such as Levaquin 750 mg p.o. q.24 hours. 3. Consult Oncology to determine whether to biopsy the retroperitoneal adenopathy. DISCUSSION: Ms Trevino is a 76-year-old white female, who had been admitted to this facility approximately a month ago. At that time, she was evaluated and had bilateral hydronephrosis. She underwent cystoscopy, bilateral retrograde pyelography, and bilateral ureteral stenting. At the time of retrograde pyelography she was found to have what appeared to be a stone in the mid right ureter with severe hydronephrosis and less significant hydronephrosis on the left side. She had dirty urine in both kidneys. It was felt that the stents would sufficiently drain. She was placed on antibiotic therapy, was being prepared for an outpatient ureteroscopy when she was readmitted with dehydration, anuria, and acute kidney injury with a serum creatinine of 3.5. She says she is always cold, she can't tell whether she has had any fever or not. Her white blood cell count was 12,000. Repeat CT scanning done last night demonstrates bilateral ureteral stents in position. She has had retroperitoneal adenopathy of unknown significance for dating back at least one month. At this point, being obstructive with the ureteral stents in the absence of any outflow obstruction it is highly suspicious for a retroperitoneal malignancy. I discussed the findings with the patient. She is elderly and frail, but wants to proceed with anything to make her better. I have therefore recommended bilateral percutaneous nephrostomy tube placement to be done as soon as possible to relieve her obstruction and subsequent workup of the retroperitoneal adenopathy with an Oncology consult. PF/DANELLEL Cole Laurent M.D. Consultation Report [address] [place]. [address] NAME: JOBY TREVINO : 38 STATUS : ADM IN PAT#: [id number] AGE: 76 ADM/REG DATE : 10/30/16 MR#: [id number] REPORT SERV DATE: 10/30/16 DICTATED BY: COLE LAURENT DATE: 10/30/16 REPORT STATUS : Draft TRANSCRIBED BY: JOAN DATE: 10/30/16 / [id number] CC: Willis Garrett M.D.
[2016-10-29 17:15] LABS: BASOPHILS 0.2 %; BASOPHILS ABSOLUTE 0.02 10/3/uL (0.0-0.16); EOSINOPHILS 0.7 %; EOSINOPHILS ABSOLUTE 0.07 10/3/uL (0.0-0.53); ER CBC TAT 0 Hrs 09 Mins; HEMOGLOBIN 14.1 g/dL (12.0-16.0); IMMATURE GRANULOCYTES 0.1 %; IMMATURE GRANULOCYTES ABSOLUTE 0.01 10/3/uL (0.0-0.11); LYMPHOCYTES 12.7 %; LYMPHOCYTES ABSOLUTE 1.36 10/3/uL (0.67-4.30); MEAN CORPUS HGB CONC 33.7 g/dL (32.0-36.0); MEAN CORPUSCULAR HEMOGLOB 32.8 pg (26.0-34.0); MEAN PLATELET VOLUME 8.9 fL (9.2-13.0); MONOCYTES 9.7 %; MONOCYTES ABSOLUTE 1.04 10/3/uL (0.21-1.20); NEUTROPHILS 76.6 %; NEUTROPHILS ABSOLUTE 8.21 10/3/uL (2.02-8.40); RBC DISTRIBUTION WIDTH 13.3 % (12.0-16.0); WHITE BLOOD CELLS 10.7 10/3/uL (4.5-10.5)
[2016-10-29 17:16] LABS: HEMATOCRIT 41.8 % (36.0-48.0); MANUAL DIFF NO %; MEAN CORPUSCULAR VOLUME 97.2 fL (80-100); PLATELET COUNT 376 10/3/uL (150-400)
[2016-10-29 17:27] LABS: A/G RATIO 0.8 (0.7-1.9); ALBUMIN 3.1 G/DL (3.5-5.0); GLOBULIN 4.1 G/DL (2.5-4.1); POTASSIUM, SERUM 4.2 MMOL/L (3.5-5.3); SGOT(AST) 15 U/L (5-40); SGPT(ALT) 12 U/L (5-65); SODIUM, SERUM 134 MMOL/L (135-148); TOTAL PROTEIN 7.2 G/DL (6.0-8.5)
[2016-10-29 17:30] LABS: ALKALINE PHOSPHATASE 68 U/L (45-117); BUN (BLOOD UREA NITROGEN) 24 MG/DL (6-23); CALCIUM, SERUM 9.4 MG/DL (8.5-10.4); CHLORIDE, SERUM 93 MMOL/L (96-112); CO2 (CARBON DIOXIDE) 31 MMOL/L (24-34); CREATININE 2.58 MG/DL (0.55-1.02); GFR AFRICAN AMERICAN 20 ML/MIN (>=60); GFR NON AFRICAN AMERICAN 17 ML/MIN (>=60); GLUCOSE, SERUM 106 MG/DL (60-99); TOTAL BILIRUBIN 0.5 MG/DL (0-1.2)
[~2016-10-29 19:00] MED LIST changes: +K250 PO; +REM15 PO; +V2 PO
[2016-10-29 22:31] LABS: ASCORBIC ACID (UR NOT ORDER) NEG (NEG); BILIRUBIN, URINE NEGATIVE (NEG); KETONE, URINE NEGATIVE (NEG); LEUKOCYTE ESTERASE(NOT OR SMALL (NEG); WBC (NOT ORDERED) (RFLEX) 8 (0-5)
[2016-10-29 22:32] LABS: NITRITE (URINE) NEG (NEG)
[2016-10-30 06:05] LABS: BASOPHILS 0.2 %; BASOPHILS ABSOLUTE 0.03 10/3/uL (0.0-0.16); EOSINOPHILS 0.4 %; EOSINOPHILS ABSOLUTE 0.05 10/3/uL (0.0-0.53); HEMATOCRIT 40.2 % (36.0-48.0); HEMOGLOBIN 13.8 g/dL (12.0-16.0); IMMATURE GRANULOCYTES 0.2 %; IMMATURE GRANULOCYTES ABSOLUTE 0.03 10/3/uL (0.0-0.11); LYMPHOCYTES 9.6 %; LYMPHOCYTES ABSOLUTE 1.19 10/3/uL (0.67-4.30); MEAN CORPUS HGB CONC 34.3 g/dL (32.0-36.0); MEAN PLATELET VOLUME 9.4 fL (9.2-13.0); MONOCYTES 8.5 %; MONOCYTES ABSOLUTE 1.05 10/3/uL (0.21-1.20); NEUTROPHILS 81.1 %; NEUTROPHILS ABSOLUTE 9.99 10/3/uL (2.02-8.40); PLATELET COUNT 336 10/3/uL (150-400); RBC DISTRIBUTION WIDTH 13.4 % (12.0-16.0); RED CELL COUNT 4.06 10/6/uL (4.0-5.6); WHITE BLOOD CELLS 12.3 10/3/uL (4.5-10.5)
[2016-10-30 06:06] LABS: MANUAL DIFF NO %
[2016-10-30 06:11] LABS: PARTIAL THROMBO TIME 28.6 SEC (22.5-37.2); PROTIME (NOT ORD) 13.3 SEC (12.0-14.5)
[2016-10-30 06:33] LABS: A/G RATIO 0.6 (0.7-1.9); ALBUMIN 2.7 G/DL (3.5-5.0); ALKALINE PHOSPHATASE 64 U/L (45-117); CALCIUM, SERUM 8.5 MG/DL (8.5-10.4); CHLORIDE, SERUM 99 MMOL/L (96-112); GLOBULIN 4.2 G/DL (2.5-4.1); POTASSIUM, SERUM 4.4 MMOL/L (3.5-5.3); SGPT(ALT) 10 U/L (5-65); SODIUM, SERUM 135 MMOL/L (135-148); TOTAL BILIRUBIN 0.5 MG/DL (0-1.2); TOTAL PROTEIN 6.9 G/DL (6.0-8.5)
[2016-10-30 06:40] LABS: BUN (BLOOD UREA NITROGEN) 29 MG/DL (6-23); CO2 (CARBON DIOXIDE) 23 MMOL/L (24-34); CREATININE 3.53 MG/DL (0.55-1.02); GFR AFRICAN AMERICAN 14 ML/MIN (>=60); GFR NON AFRICAN AMERICAN 12 ML/MIN (>=60); GLUCOSE, SERUM 77 MG/DL (60-99)
[2016-10-30 06:41] LABS: SGOT(AST) 19 U/L (5-40)
[2016-10-30 10:17] LABS: HEMATOCRIT 38.8 % (36.0-48.0)
[2016-10-30 10:24] LABS: BUN (BLOOD UREA NITROGEN) 31 MG/DL (6-23); CALCIUM, SERUM 8.3 MG/DL (8.5-10.4); CHLORIDE, SERUM 99 MMOL/L (96-112); CO2 (CARBON DIOXIDE) 24 MMOL/L (24-34); CREATININE 3.71 MG/DL (0.55-1.02); GFR AFRICAN AMERICAN 13 ML/MIN (>=60); GFR NON AFRICAN AMERICAN 11 ML/MIN (>=60); GLUCOSE, SERUM 76 MG/DL (60-99); INTERNATIONAL NORMAL RATI 1.1 UNITS (-); PARTIAL THROMBO TIME 29.9 SEC (22.5-37.2); POTASSIUM, SERUM 4.5 MMOL/L (3.5-5.3); PROTIME (NOT ORD) 13.8 SEC (12.0-14.5); SODIUM, SERUM 135 MMOL/L (135-148)
[2016-10-31 06:35] LABS: HEMATOCRIT 40.1 % (36.0-48.0); HEMOGLOBIN 13.1 g/dL (12.0-16.0)
[2016-10-31 06:49] LABS: BUN (BLOOD UREA NITROGEN) 27 MG/DL (6-23); CHLORIDE, SERUM 104 MMOL/L (96-112); CO2 (CARBON DIOXIDE) 21 MMOL/L (24-34); CREATININE 2.16 MG/DL (0.55-1.02); GFR AFRICAN AMERICAN 25 ML/MIN (>=60); GFR NON AFRICAN AMERICAN 21 ML/MIN (>=60); GLUCOSE, SERUM 48 MG/DL (60-99); POTASSIUM, SERUM 4.3 MMOL/L (3.5-5.3); SODIUM, SERUM 140 MMOL/L (135-148)
[2016-11-01 06:47] LABS: BASOPHILS 0.2 %; BASOPHILS ABSOLUTE 0.02 10/3/uL (0.0-0.16); EOSINOPHILS 0.3 %; EOSINOPHILS ABSOLUTE 0.03 10/3/uL (0.0-0.53); HEMATOCRIT 38.2 % (36.0-48.0); HEMOGLOBIN 13.1 g/dL (12.0-16.0); IMMATURE GRANULOCYTES 0.3 %; IMMATURE GRANULOCYTES ABSOLUTE 0.03 10/3/uL (0.0-0.11); LYMPHOCYTES 10.4 %; LYMPHOCYTES ABSOLUTE 0.98 10/3/uL (0.67-4.30); MEAN CORPUS HGB CONC 34.3 g/dL (32.0-36.0); MEAN CORPUSCULAR HEMOGLOB 33.1 pg (26.0-34.0); MEAN CORPUSCULAR VOLUME 96.5 fL (80-100); MEAN PLATELET VOLUME 9.1 fL (9.2-13.0); MONOCYTES 9.2 %; MONOCYTES ABSOLUTE 0.86 10/3/uL (0.21-1.20); NEUTROPHILS 79.6 %; NEUTROPHILS ABSOLUTE 7.46 10/3/uL (2.02-8.40); PLATELET COUNT 362 10/3/uL (150-400); RBC DISTRIBUTION WIDTH 13.1 % (12.0-16.0); RED CELL COUNT 3.96 10/6/uL (4.0-5.6); WHITE BLOOD CELLS 9.4 10/3/uL (4.5-10.5)
[2016-11-01 06:49] LABS: MANUAL DIFF NO %
[2016-11-01 06:57] LABS: BUN (BLOOD UREA NITROGEN) 24 MG/DL (6-23); CALCIUM, SERUM 9.2 MG/DL (8.5-10.4); CHLORIDE, SERUM 103 MMOL/L (96-112); CO2 (CARBON DIOXIDE) 27 MMOL/L (24-34); CREATININE 0.99 MG/DL (0.55-1.02); GFR AFRICAN AMERICAN 64 ML/MIN (>=60); GFR NON AFRICAN AMERICAN 55 ML/MIN (>=60); GLUCOSE, SERUM 103 MG/DL (60-99); POTASSIUM, SERUM 4.3 MMOL/L (3.5-5.3); SODIUM, SERUM 144 MMOL/L (135-148)
[2016-11-01 07:38] LABS: PROCALCITONIN 0.24 ng/mL (<0.5)
[2016-11-01 12:37] LABS: PREALBUMIN 5.4 MG/DL (17.0-43.0)
[2016-11-02 00:11] LABS: CALCIUM, SERUM 9.4 MG/DL (8.5-10.4); CHLORIDE, SERUM 101 MMOL/L (96-112); CO2 (CARBON DIOXIDE) 25 MMOL/L (24-34); CREATININE 0.75 MG/DL (0.55-1.02); GFR AFRICAN AMERICAN 89 ML/MIN (>=60); GFR NON AFRICAN AMERICAN 77 ML/MIN (>=60); SODIUM, SERUM 141 MMOL/L (135-148)
[2016-11-02 00:14] LABS: TROPONIN I <0.02 NG/ML (<0.05)
[2016-11-02 00:19] LABS: BUN (BLOOD UREA NITROGEN) 20 MG/DL (6-23); CK-MB 1.2 NG/ML; CPK 36 U/L (0-200); GLUCOSE, SERUM 133 MG/DL (60-99); POTASSIUM, SERUM 3.4 MMOL/L (3.5-5.3)
[2016-11-02 06:23] LABS: BUN (BLOOD UREA NITROGEN) 17 MG/DL (6-23); CHLORIDE, SERUM 105 MMOL/L (96-112); CO2 (CARBON DIOXIDE) 26 MMOL/L (24-34); CREATININE 0.65 MG/DL (0.55-1.02); GFR AFRICAN AMERICAN 99 ML/MIN (>=60); GFR NON AFRICAN AMERICAN 86 ML/MIN (>=60); GLUCOSE, SERUM 139 MG/DL (60-99); POTASSIUM, SERUM 3.6 MMOL/L (3.5-5.3); SGOT(AST) 10 U/L (5-40); SGPT(ALT) 9 U/L (5-65); SODIUM, SERUM 142 MMOL/L (135-148); TOTAL BILIRUBIN 0.7 MG/DL (0-1.2); TOTAL PROTEIN 6.5 G/DL (6.0-8.5)
[2016-11-02 06:24] LABS: A/G RATIO 1.2 (0.7-1.9); ALBUMIN 3.5 G/DL (3.5-5.0); ALKALINE PHOSPHATASE 43 U/L (45-117)
[2016-11-02 06:25] LABS: BASOPHILS 0.1 %; BASOPHILS ABSOLUTE 0.01 10/3/uL (0.0-0.16); EOSINOPHILS 0.1 %; EOSINOPHILS ABSOLUTE 0.01 10/3/uL (0.0-0.53); HEMOGLOBIN 11.3 g/dL (12.0-16.0); IMMATURE GRANULOCYTES 0.1 %; IMMATURE GRANULOCYTES ABSOLUTE 0.01 10/3/uL (0.0-0.11); LYMPHOCYTES 10.3 %; LYMPHOCYTES ABSOLUTE 0.96 10/3/uL (0.67-4.30); MEAN CORPUSCULAR HEMOGLOB 32.8 pg (26.0-34.0); MEAN CORPUSCULAR VOLUME 96.5 fL (80-100); MONOCYTES 10.8 %; MONOCYTES ABSOLUTE 1.01 10/3/uL (0.21-1.20); NEUTROPHILS 78.6 %; NEUTROPHILS ABSOLUTE 7.33 10/3/uL (2.02-8.40); PLATELET COUNT 280 10/3/uL (150-400); RED CELL COUNT 3.44 10/6/uL (4.0-5.6); WHITE BLOOD CELLS 9.3 10/3/uL (4.5-10.5)
[2016-11-02 06:30] LABS: HEMATOCRIT 33.2 % (36.0-48.0); MANUAL DIFF NO %
[2016-11-03 06:07] LABS: MEAN CORPUS HGB CONC 33.6 g/dL (32.0-36.0); MEAN CORPUSCULAR HEMOGLOB 32.7 pg (26.0-34.0); MEAN CORPUSCULAR VOLUME 97.4 fL (80-100); MEAN PLATELET VOLUME 8.9 fL (9.2-13.0); PLATELET COUNT 286 10/3/uL (150-400); RBC DISTRIBUTION WIDTH 13.1 % (12.0-16.0); WHITE BLOOD CELLS 12.9 10/3/uL (4.5-10.5)
[2016-11-03 06:17] LABS: BUN (BLOOD UREA NITROGEN) 12 MG/DL (6-23); CALCIUM, SERUM 8.9 MG/DL (8.5-10.4); CHLORIDE, SERUM 105 MMOL/L (96-112); CO2 (CARBON DIOXIDE) 23 MMOL/L (24-34); CREATININE 0.69 MG/DL (0.55-1.02); GFR AFRICAN AMERICAN 97 ML/MIN (>=60); GFR NON AFRICAN AMERICAN 84 ML/MIN (>=60); GLUCOSE, SERUM 141 MG/DL (60-99); POTASSIUM, SERUM 3.6 MMOL/L (3.5-5.3); SODIUM, SERUM 140 MMOL/L (135-148)
[2016-11-03 06:21] LABS: HEMATOCRIT 40.5 % (36.0-48.0); HEMOGLOBIN 13.6 g/dL (12.0-16.0); RED CELL COUNT 4.16 10/6/uL (4.0-5.6)
[2016-11-03 06:22] LABS: MANUAL DIFF YES %
[2016-11-03 06:23] LABS: BAND NEUTROPHILS 4 %; LYMPHOCYTES 7 %; MONOCYTES 8 %; MONOCYTES ABSOLUTE (CALC) 1.03 10/3/uL (0.21-1.20); NEUTROPHILS ABSOLUTE (CALC) 10.97 10/3/uL (2.02-8.40); SEGMENTED NEUTROPHIL (0) 81 %; TOTAL NUCLEATED CELLS 100
[2016-11-03 06:24] LABS: PLATELET ESTIMATE ADQ (ADEQUATE); RBC MORPHOLOGY NORM (NORMAL)
[2016-11-04 06:38] LABS: BUN (BLOOD UREA NITROGEN) 13 MG/DL (6-23); CHLORIDE, SERUM 104 MMOL/L (96-112); CO2 (CARBON DIOXIDE) 27 MMOL/L (24-34); CREATININE 0.62 MG/DL (0.55-1.02); GFR AFRICAN AMERICAN 101 ML/MIN (>=60); GFR NON AFRICAN AMERICAN 87 ML/MIN (>=60); POTASSIUM, SERUM 3.7 MMOL/L (3.5-5.3); SODIUM, SERUM 142 MMOL/L (135-148)
[2016-11-04 06:41] LABS: GLUCOSE, SERUM 81 MG/DL (60-99)
== END 2016-11-04 16:02 | disposition hospice, inpatient (51) | DRG 987 ==
LOC: ER 19:00 → 5NO 10-30 00:35 → IMCU 11-02 01:15 → 2SO 11-03 16:37
PROVIDERS: Emergency Medicine; Hospitalist; Internal Medicine; Radiology Vascular & Interventional Radiology; Urology
PROC: 079 Lymphatic and Hemic Systems, Drainage (ICD-10-PCS; 2016-10-30)
PROC: 0T9030Z Drainage of Right Kidney with Drainage Device, Percutaneous Approach (ICD-10-PCS; 2016-10-30)
PROC: 0T9130Z Drainage of Left Kidney with Drainage Device, Percutaneous Approach (ICD-10-PCS; principal; 2016-10-30 17:00)
DX: C34.90 Malignant neoplasm of unspecified part of unspecified bronchus or lung (principal); E43 Unspecified severe protein-calorie malnutrition; N17.9 Acute kidney failure, unspecified; N13.30 Unspecified hydronephrosis; C77.2 Secondary and unspecified malignant neoplasm of intra-abdominal lymph nodes; I48.4 Atypical atrial flutter; I48.0 Paroxysmal atrial fibrillation; Z68.1 Body mass index [BMI] 19.9 or less, adult; E83.42 Hypomagnesemia; E86.0 Dehydration; R59.1 Generalized enlarged lymph nodes; Z51.5 Encounter for palliative care; Z66 Do not resuscitate; E87.6 Hypokalemia; R62.7 Adult failure to thrive; J45.909 Unspecified asthma, uncomplicated; Z88.2 Allergy status to sulfonamides; Z87.891 Personal history of nicotine dependence; Z85.828 Personal history of other malignant neoplasm of skin
CPT/HCPCS: 38505; 50432; 71010; 71250; 74176; 77012; 80048; 80053; 81001; 82550; 82553; 82962; 83605; 83690; 83735; 84134; 84145; 84443; 84484; 85014; 85018; 85025; 85610; 85730; 87040; 87070; 87075; 87086; 87205; 88305; 88313; 88333; 88341; 88342; 88360; 93005; 96374; 96375; 99285; A9270-GY; C1729; C1769; C1894; J0282; J1170; J1980; J2250; J2405; J2710; J3010; J3411; J3473; P9047; Q9967